=== PATIENT | female | born 1995 | race Caucasian/White ===

== ENCOUNTER 2020-04-03 08:00 | Outpatient (CLI) | payer MEDICAID ==
[2020-04-03 15:36] LABS: MUDS CUTOFF CONCENTRATIONS CUTOFF CONC BELOW:
[2020-04-03 15:53] LABS: AMPHETAMINE SCREEN,URINE NEGATIVE (NEGATIVE); BENZODIAZEPINES SCREEN, URINE NEGATIVE (NEGATIVE); COCAINE SCREEN URINE NEGATIVE (NEGATIVE); METHADONE SCREEN, URINE NEGATIVE (NEGATIVE); METHAMPHETAMINES SCREEN, URINE NEGATIVE (NEGATIVE); OPIATE SCREEN, URINE NEGATIVE (NEGATIVE); OXYCODONE SCREEN, URINE NEGATIVE (NEGATIVE); PROPOXYPHENE SCREEN, URINE NEGATIVE (NEGATIVE); TRICYCLIC ANTIDEPRESSANT,URINE NEGATIVE (NEGATIVE)
== END 2020-04-03 23:59 | disposition home or self-care (01) ==
LOC: LAB.R 08:00
PROVIDERS: ATTEND Advanced Practice Midwife
DX: Z32.01 Encounter for pregnancy test, result positive (principal)
CPT/HCPCS: 80306

== ENCOUNTER 2020-04-17 11:39 | Outpatient (CLI) | payer MEDICAID ==
--- NOTE | 2020-04-18 10:19 | Ultrasound Report ---
PROCEDURE: OB First Trimester INDICATIONS: POSITIVE TEST OUTSIDE/PRIOR DATING DATA: Last menstrual period (LMP): 02/07/2020. LMP-based estimated date of delivery (JERRI): 11/13/2020. First dating scan (date and location): 04/17/2020. Estimated date of delivery (JERRI) from first dating scan: 11/10/2020. TECHNIQUE: Real-time scanning was performed of the fetus and maternal pelvic organs, with image documentation. COMPARISON: None. FINDINGS: Embryo: A gestational sac is seen in the uterus with an embryo with crown-rump length compatible wit h a gestational age of 10 weeks 3 days. heart rate is 169 BPM. Measurement variability in dating: +/- 4 weeks by LMP, +/- 7 days by mean sac diameter (use before 6 weeks gestation if crown-rump length not able to be measured), +/- 5 days by crown-rump length (6-12 weeks gestation). Maternal organs: Ovaries are within normal limits. A right corpus luteum cyst is seen. The cervix is closed. Limited images through the kidneys demonstrate no hydronephrosis. IMPRESSION: Single live intrauterine with a heart rate of 169 bpm. Gowrie-rump length is compatibl e with a 10 week 3 day gestation, giving an ultrasound JERRI of 11/10/2020. Reviewed by: Vasiliy Corrales MD on 04/18/2020 10:18 AM PDT Approved by: Vasiliy Corrales MD on 04/18/2020 10:18 AM PDT Station ID: [id number]
== END 2020-04-17 11:40 | disposition home or self-care (01) ==
LOC: DI 11:39
PROVIDERS: ATTEND Advanced Practice Midwife
DX: Z32.01 Encounter for pregnancy test, result positive (principal)
CPT/HCPCS: 76801

== ENCOUNTER 2020-04-21 07:00 | Outpatient (CLI) | payer MEDICAID ==
[2020-04-21 16:25] LABS: BILIRUBIN,URINE NEGATIVE (NEGATIVE); GLUCOSE, URINE (UA) NEGATIVE (NEGATIVE); KETONES,URINE (UA) NEGATIVE (NEGATIVE); LEUKOCYTE ESTERASE, URINE NEGATIVE (NEGATIVE); NITRITE,URINE NEGATIVE (NEGATIVE); OCCULT BLOOD,URINE NEGATIVE (NEGATIVE); PROTEIN,URINE NEGATIVE (NEGATIVE); UROBILINOGEN,URINE 0.2 (NORMAL) E.U./dL (NORMAL)
[2020-04-21 16:49] LABS: AMORPHOUS SEDIMENT,UR Marked /LPF; BACTERIA,URINE None Seen /HPF (None Seen); CLARITY,URINE CLEAR (CLEAR); RBC,URINE None Seen /HPF (0-5); SQUAMOUS EPITHELIAL CELL,UR NONE SEEN (<= Few)
[2020-04-21 20:52] LABS: TRICHOMONAS VAGINALIS DNA NEGATIVE (NEGATIVE)
== END 2020-04-21 23:59 | disposition home or self-care (01) ==
LOC: LAB.R 07:00
PROVIDERS: ATTEND Nurse Practitioner Obstetrics & Gynecology
DX: Z34.90 Encounter for supervision of normal pregnancy, unspecified, unspecified trimester (principal); Z11.3 Encounter for screening for infections with a predominantly sexual mode of transmission
CPT/HCPCS: 81001; 87086; 87491; 87591; 87661

== ENCOUNTER 2020-04-21 12:00 | Outpatient (CLI) | payer MEDICAID ==
[2020-04-21 12:16] LABS: BASOPHILS % (AUTO) 0.3 %; EOSINOPHILS # (AUTO) 0.1 10^3/uL (0.0-0.7); EOSINOPHILS % (AUTO) 0.7 %; HGB - HEMOGLOBIN 13.2 g/dL (12.0-16.0); LYMPHOCYTES # (AUTO) 1.3 10^3/uL (1.5-3.5); LYMPHOCYTES % (AUTO) 17.8 %; MEAN CORPUSCULAR HEMOGLOBIN 29.8 pg (27.0-31.0); MEAN CORPUSCULAR HGB CONC 34.1 g/dL (32.0-36.0); MEAN CORPUSCULAR VOLUME 87.4 fL (81.0-99.0); MONOCYTES # (AUTO) 0.5 10^3/uL (0.0-1.0); MONOCYTES % (AUTO) 6.1 %; NEUTROPHILS # (AUTO) 5.6 10^3/uL (1.5-6.6); NEUTROPHILS % (AUTO) 74.7 %; PLT - PLATELET COUNT 203 10^3/uL (130-450); RED BLOOD COUNT 4.43 10^6/uL (4.20-5.40); RED CELL DISTRIBUTION WIDTH 12.6 % (12.0-15.0); WHITE BLOOD COUNT 7.5 x10^3/uL (4.8-10.8)
[2020-04-21 12:18] LABS: BILIRUBIN,URINE NEGATIVE (NEGATIVE); GLUCOSE, URINE (UA) NEGATIVE (NEGATIVE); KETONES,URINE (UA) TRACE mg/dL (NEGATIVE); LEUKOCYTE ESTERASE, URINE NEGATIVE (NEGATIVE); NITRITE,URINE NEGATIVE (NEGATIVE); OCCULT BLOOD,URINE NEGATIVE (NEGATIVE); PROTEIN,URINE NEGATIVE (NEGATIVE); UROBILINOGEN,URINE 0.2 (NORMAL) E.U./dL (NORMAL)
[2020-04-21 12:28] LABS: CLARITY,URINE HAZY (CLEAR)
[2020-04-21 12:34] LABS: BACTERIA,URINE Few /HPF (None Seen); RBC,URINE 0-5 /HPF (0-5); SQUAMOUS EPITHELIAL CELL,UR MANY Squamous (<= Few)
[2020-04-22 07:47] LABS: HIV AG/AB 4TH GEN NON-REACTIVE (NON-REACTIVE)
[2020-04-22 14:37] LABS: HEPATITIS B SURFACE ANTIGEN NON-REACTIVE (NON-REACTIVE)
[2020-04-22 14:38] LABS: HEPATITIS C ANTIBODY NON-REACTIVE (NON-REACTIVE)
== END 2020-04-21 12:01 | disposition home or self-care (01) ==
LOC: LAB 12:00
PROVIDERS: ATTEND Nurse Practitioner Obstetrics & Gynecology
DX: Z34.90 Encounter for supervision of normal pregnancy, unspecified, unspecified trimester (principal)
CPT/HCPCS: 36415; 81001; 81599; 85025; 86592; 86762; 86787; 86803; 86850; 86900; 86901; 87086; 87340; 87389; 87491; 87591; 87661

== ENCOUNTER 2020-06-28 12:11 | Outpatient (CLI) | payer BC, MEDICAID ==
--- NOTE | 2020-06-28 15:58 | Ultrasound Report ---
PROCEDURE: OB Detailed Eval INDICATIONS: SUPERVISION OF NORMAL OUTSIDE/PRIOR DATING DATA: Last menstrual period (LMP): 02/07/2020. LMP-based estimated date of delivery (JERRI): 11/13/2020. First dating scan (date and location): 04/07/2020. Estimated date of delivery (JERRI) from first dating scan: Reported 11/13/2020 according to the provider , based on LMP. Measurement variability is +/- 30 days. From the OB ultrasound performed 04/17/2020 t he estimated date of delivery is 11/10/2020, +/- 5 days, and is considered the accurate projected date of delivery to be utilized. TECHNIQUE: Real-time scanning was performed of the fetus, with image documentation and biometric measurements. Endovaginal scanning: Not needed COMPARISON: Prior OB ultrasound 04/17/2020 FINDINGS: General: A single living intrauterine gestation is present. Presentation: Vertex Placenta: Placental position is anterior, without previa. Amniotic fluid index: 15.3 cm, 60th percentile for gestational age. heart rate: 143 beats per minute. Maternal cervical canal: 3.7 cm long; normal length is 2.5 cm or more. biometrics: Biparietal diameter: 4.9 cm, 21 weeks 0 days Head circumference: 18.7 cm, 21 weeks 0 days Abdominal circumference: 16.0 cm, 21 weeks 1 day Femur length: 3.3 cm, 20 weeks 3 days Estimated gestational age from initial scan: 20 weeks 2 days. Composite gestational age from present scan: 20 weeks 6 days Estimated weight and percentile: 383 g, 77th percentile Measurement variability in biometric dating: +/- 10 days from 12-20 weeks gestation, +/- 2 weeks from 20-30 weeks gestation, +/- 3 weeks at 30 weeks gestation or later. Anatomic survey: Neuro: Ventricles are normal at less than 10 mm. Cisterna magna is normal at 3-11 mm. Cerebellum i s normal in size and morphology. Nuchal skin fold: Normal at less than 6 mm between 14 and 20 weeks gestational age. Face: Nose and lips, facial profile are normal. Spine: No evidence for spina bifida. Heart: 4-chambered heart is present, with normal ventricular outflow tracts. Diaphragm: Diaphragm is intact. Stomach: Left-sided stomach is present. Kidneys: No hydronephrosis. Normal is less than 5 mm in 2nd trimester, less than 7 mm in 3rd trimester. Cord: 3 vessel cord has orthotopic insertion. A nuchal cord was noted over the course of the examin ation, persisting. Bladder: Normal in size. Extremities: All 4 extremities are visualized. IMPRESSION: Appropriate interval growth, no anomaly seen. Amniotic fluid volume is normal. Survey of anatomy is normal except for presence of a nuchal cord considered persisting over the course of the e xamination. Single wrap. Reviewed by: Kulwinder Cintron MD on 06/28/2020 3:57 PM PST Approved by: Kulwinder Cintron MD on 06/28/2020 3:57 PM PST Station ID: [id number]
== END 2020-06-28 12:12 | disposition home or self-care (01) ==
LOC: DI 12:11
PROVIDERS: ATTEND Advanced Practice Midwife
DX: Z34.90 Encounter for supervision of normal pregnancy, unspecified, unspecified trimester (principal); Z36.89 Encounter for other specified antenatal screening

== ENCOUNTER 2020-08-07 17:01 | Outpatient (CLI) | payer BC, MEDICAID ==
--- NOTE | 2020-08-08 12:47 | Ultrasound Report ---
PROCEDURE: OB F/U or Repeat INDICATIONS: UTERINE SIZE/DATE DISCREPANCY OUTSIDE/PRIOR DATING DATA: Last menstrual period (LMP): 02/07/2020. LMP-based estimated date of delivery (JERRI): 11/13/2020. First dating scan (date and location): 04/17/2020. Estimated date of delivery (JERRI) from first dating scan: 11/10/2020. TECHNIQUE: Real-time scanning was performed of the fetus, with image documentation and biometric measurements. Endovaginal scanning: Not needed COMPARISON: 04/17/2020, 06/28/2021 FINDINGS: General: A single living intrauterine gestation is present. Presentation: Transverse head to the maternal left Placenta: Placental position is anterior, without previa. Amniotic fluid index: 16.0 cm, normal for gestational age. heart rate: 158 beats per minute. Maternal cervical canal: 4.0 cm long; normal length is 2.5 cm or more. biometrics: Biparietal diameter: 6.8 cm, 27 weeks 3 days Head circumference: 25.4 cm, 27 weeks 4 days Abdominal circumference: 23.6 cm, 27 weeks 6 days Femur length: 4.8 cm, 26 weeks 1 day Estimated gestational age from initial scan: 26 weeks 0 days. Composite gestational age from present scan: 27 weeks 2 days Estimated weight and percentile: 1044 g, 87th percentile Measurement variability in biometric dating: +/- 10 days from 12-20 weeks gestation, +/- 2 weeks from 20-30 weeks gestation, +/- 3 weeks at 30 weeks gestation or more. Other: Nuchal cord seen on prior ultrasound now not visualized.. IMPRESSION: Resolution of nuchal cord, appropriate interval growth. No anomaly seen. Normal fe lewis weight, normal amniotic fluid index. Reviewed by: Kulwinder Cintron MD on 08/08/2020 12:45 PM PST Approved by: Kulwinder Cintron MD on 08/08/2020 12:45 PM PST Station ID: [id number]
== END 2020-08-07 17:02 | disposition home or self-care (01) ==
LOC: DI 17:01
PROVIDERS: ATTEND Advanced Practice Midwife
DX: O26.849 Uterine size-date discrepancy, unspecified trimester (principal)

== ENCOUNTER 2020-08-11 08:00 | Outpatient (CLI) | payer BC, MEDICAID ==
[2020-08-11 14:02] LABS: HGB - HEMOGLOBIN 11.1 g/dL (12.0-16.0); MEAN CORPUSCULAR HEMOGLOBIN 29.4 pg (27.0-31.0); MEAN CORPUSCULAR HGB CONC 33.3 g/dL (32.0-36.0); MEAN CORPUSCULAR VOLUME 88.3 fL (81.0-99.0); MEAN PLATELET VOLUME 8.9 fL (7.9-10.8); RED BLOOD COUNT 3.77 10^6/uL (4.20-5.40); RED CELL DISTRIBUTION WIDTH 13.2 % (12.0-15.0); WHITE BLOOD COUNT 11.5 x10^3/uL (4.8-10.8)
== END 2020-08-11 23:59 | disposition home or self-care (01) ==
LOC: LAB 08:00
PROVIDERS: ATTEND Advanced Practice Midwife
DX: Z34.90 Encounter for supervision of normal pregnancy, unspecified, unspecified trimester (principal); Z36.89 Encounter for other specified antenatal screening
CPT/HCPCS: 36415; 82950; 85027

== ENCOUNTER 2020-10-04 15:10 | Outpatient (CLI) | payer BC, MEDICAID ==
--- NOTE | 2020-10-04 16:44 | Ultrasound Report ---
PROCEDURE: OB F/U or Repeat INDICATIONS: UTERINE SIZE, DATE DESCREPANCY ANTEPARTUM OUTSIDE/PRIOR DATING DATA: Last menstrual period (LMP): 03/05/2020. LMP-based estimated date of delivery (JERRI): 11/13/2020. First dating scan (date and location): 04/17/2020. Estimated date of delivery (JERRI) from first dating scan: 11/20/2020. JERRI given as provider is stated as 11/13/2020 and is the basis for the information below. TECHNIQUE: Real-time scanning was performed of the fetus, with image documentation and biometric measurements. COMPARISON: OB ultrasound 08/07/2020, 06/28/2020 FINDINGS: General: A single living intrauterine gestation is present. Presentation: Vertex Placenta: Placental position is anterior, without previa. Amniotic fluid index: 18.3 cm, 74% for gestational age. 7.1 cm heart rate: 127 beats per minute. Maternal cervical canal: 3.4 cm long; normal length is 2.5 cm or more. biometrics: Biparietal diameter: 8.8 cm 35 weeks 5 days Head circumference: 32.6 cm 37 weeks 0 days Abdominal circumference: 35.5 cm 39 weeks 3 days Femur length: 6.7 cm 34 weeks 4 days Estimated gestational age from initial scan: 34 weeks 2 days Composite gestational age from present scan: 36 weeks 5 days Estimated weight and percentile: Unable to be calculated secondary to out of range for scoo mobility software. Measurement variability in biometric dating: +/- 10 days from 12-20 weeks gestation, +/- 2 weeks from 20-30 weeks gestation, +/- 3 weeks at 30 weeks gestation or more. Other: Not applicable. IMPRESSION: 1. Single live intrauterine with gestational age of 36 weeks 5 days. 2. weight is unable to be calculated secondary to out of range for computational software. 3. It is noted a greater than 3 week discrepancy is present between femur length and abdominal circum ference. Asymmetric growth restriction cannot be excluded. Reviewed by: Kelli Crespo MD on 10/04/2020 4:43 PM PDT Approved by: Kelli Crespo MD on 10/04/2020 4:43 PM PDT Station ID: [id number]
== END 2020-10-04 15:11 | disposition home or self-care (01) ==
LOC: DI 15:10
PROVIDERS: ATTEND Advanced Practice Midwife
DX: O26.843 Uterine size-date discrepancy, third trimester (principal); Z3A.36 36 weeks gestation of pregnancy

== ENCOUNTER 2020-10-09 07:57 | Outpatient (CLI) | payer BC, MEDICAID ==
[2020-10-09 08:25] LABS: GTT GLUCOSE,FASTING 108 mg/dL (70-100)
== END 2020-10-09 07:58 | disposition home or self-care (01) ==
LOC: LAB 07:57
PROVIDERS: ATTEND Advanced Practice Midwife
DX: O36.60X0 Maternal care for excessive fetal growth, unspecified trimester, not applicable or unspecified (principal)
CPT/HCPCS: 36415; 82951; 82952

== ENCOUNTER 2020-10-13 13:47 | Outpatient (CLI) | payer BC, MEDICAID ==
[2020-10-13 14:00] VITALS: BP 116/71
--- NOTE | 2020-10-13 17:24 | PROCEDURE REPORT ---
- HPI Diagnosis/Indication for NST: Gestational Diabetes Current EDU 11/13/20 Gestation 35 Weeks and 4 Days 2 Para 1 Vital Signs Temperature 36.5 C 10/13/20 14:00 Heart Rate 74 10/13/20 14:00 Respiratory Rate 16 10/13/20 14:00 Blood Pressure 116/71 10/13/20 14:00 O2 Saturation 99 10/13/20 14:00 Temperature 36.5 C 10/13/20 14:00 Heart Rate 74 10/13/20 14:00 Respiratory Rate 16 10/13/20 14:00 Blood Pressure 116/71 10/13/20 14:00 O2 Saturation 99 10/13/20 14:00 - NST Procedure NST Procedure Start Date 10/13/20 Start Time 13:56 Stop Time 14:28 Vibroacoustic Stimulation Used No Patient States Movement Yes - Results and Plan Plan: Camelia presents today for scheduled NST r/t complicated by GDM She is a 24yo @ 35.4wks gestation NST perform date: 10/13/2020 NST read date: 10/13/2020 FHR 130 baseline, moderate variability, accels, no decels Interpretation: Reactive Plan: Continue with routine care Continue with scheduled NSTs and BPPs Final Diagnosis: complicated by GDM
== END 2020-10-13 14:40 | disposition home or self-care (01) ==
LOC: WFO 13:47 → FBP 13:49 → WFO 14:40
PROVIDERS: ATTEND Nurse Practitioner Obstetrics & Gynecology
DX: O24.419 Gestational diabetes mellitus in pregnancy, unspecified control (principal); Z3A.35 35 weeks gestation of pregnancy
CPT/HCPCS: 59025

== ENCOUNTER 2020-10-16 13:32 | Outpatient (CLI) | payer BC, MEDICAID ==
[2020-10-16 15:19] VITALS: BP 122/77
[2020-10-16 15:26] LABS: BILIRUBIN,URINE NEGATIVE (NEGATIVE); GLUCOSE, URINE (UA) NEGATIVE (NEGATIVE); KETONES,URINE (UA) 15 mg/dL (NEGATIVE); LEUKOCYTE ESTERASE, URINE SMALL (NEGATIVE); NITRITE,URINE NEGATIVE (NEGATIVE); OCCULT BLOOD,URINE SMALL (NEGATIVE); PH,URINE 6.5 PH (5.0-7.5); PROTEIN,URINE NEGATIVE (NEGATIVE); UROBILINOGEN,URINE 0.2 (NORMAL) E.U./dL (NORMAL)
[2020-10-16 15:35] LABS: BACTERIA,URINE Rare /HPF (None Seen); CLARITY,URINE CLEAR (CLEAR); MUCUS,URINE Few Strands; SQUAMOUS EPITHELIAL CELL,UR FEW Squamous (<= Few); WBC,URINE 0-3 /HPF (0-5)
--- NOTE | 2020-10-16 15:49 | PROVIDER PROGRESS NOTE ---
- HPI Chief Complaint: Pain, non-labor Current : Current EDU 11/13/20 Gestation 36 Weeks and 0 Days 2 Para 1 Vital Signs Temperature 37 C 10/16/20 14:03 Heart Rate 91 10/16/20 14:03 Respiratory Rate 18 10/16/20 14:03 Blood Pressure 122/77 10/16/20 14:03 O2 Saturation 100 10/16/20 14:03 Temperature 37 C 10/16/20 14:03 Heart Rate 91 10/16/20 14:03 Respiratory Rate 18 10/16/20 14:03 Blood Pressure 122/77 10/16/20 14:03 O2 Saturation 100 10/16/20 14:03 - Procedures OB Procedure Performed: NST NST Procedure: NST Procedure Start Time 13:56 Stop Time 14:28 - Plan Plan: Camelia presents to triage with c/o lower abdominal cramping and back discomfort She is 36.0wks today, and is with a complicated by Gestational Diabetes. She reports feeling the baby has dropped into her pelvis and has discomfort when standing or walking around. Diffuse cramping like pressure. Sharp pain shoots up her back, and is positional. She has her blood sugar record from recent new diagnosis GDM O: Ctx q3-10mins- palpate mild, resting tone soft FHT 135 moderate variability, accels, do decels UA- pending GBS-pending GC/CT- pending Affirm- pending SVE 08/05/ballotable/posterior/moderate Blood sugar record: Fastin; 104; 87; 139; 122; 90 Post prandials- one out of range (150) A: 24yo at 36.0wks gestation Pelvic Pain- possibly related to SPD or round ligament pain Poorly controlled Gestational Diabetes (>30% AM sugars out of range) P: Await results of pending labs- will notify patient of abnormals Expectant management if increasing uterine activity- OK to discharge home with labor precautiions Start on Metformin 500mg PO daily, will evaluate blood sugar record at appointment next week, and increase to BID if indicated Growth and ALE with NST scheduled for tomorrow (Current recommendations are for growth between 36.0-39.0 wks) Continue with routine care and twice weekly NST with once weekly BPP Final Diagnosis: pelvic pain gestational diabetes This was a [id number] encounter for 27 minutes of patient care
[2020-10-16 22:05] LABS: CHLAMYDIA TRACHOMATIS DNA NEGATIVE (NEGATIVE); NEISSERIA GONORRHOEAE DNA NEGATIVE (NEGATIVE); TRICHOMONAS VAGINALIS DNA NEGATIVE (NEGATIVE)
[2020-10-16 22:57] LABS: BACTERIAL VAGINOSIS DNA NEGATIVE (NEGATIVE)
[2020-10-16 22:58] LABS: CANDIDA GLABRATA DNA NEGATIVE (NEGATIVE); CANDIDA GROUP DNA POSITIVE (NEGATIVE); CANDIDA KRUSEI DNA NEGATIVE (NEGATIVE); TRICHOMONAS VAGINALIS DNA NEGATIVE (NEGATIVE)
== END 2020-10-16 15:55 | disposition home or self-care (01) ==
LOC: WFO 13:32 → FBP 13:36 → WFO 15:55
PROVIDERS: ATTEND Advanced Practice Midwife
DX: O99.891 Other specified diseases and conditions complicating pregnancy (principal); R10.2 Pelvic and perineal pain; O24.415 Gestational diabetes mellitus in pregnancy, controlled by oral hypoglycemic drugs; Z3A.36 36 weeks gestation of pregnancy
CPT/HCPCS: 59025; 81001; 87086; 87491; 87591; 87661; 87797; 87801; 99214

== ENCOUNTER 2020-10-17 13:58 | Outpatient (CLI) | payer BC, MEDICAID ==
[2020-10-17 14:23] VITALS: BP 122/79
--- NOTE | 2020-10-17 16:56 | Ultrasound Report ---
PROCEDURE: OB F/U or Repeat INDICATIONS: GDM, LGA, JERRI 11/13/2020, LMP 02/07/2020 OUTSIDE/PRIOR DATING DATA: Last menstrual period (LMP): 02/07/2020. LMP-based estimated date of delivery (JERRI): 11/13/2020. First dating scan (date and location): 04/17/2020. Estimated date of delivery (JERRI) from first dating scan: 11/20/2020. TECHNIQUE: Real-time scanning was performed of the fetus, with image documentation and biometric measurements. COMPARISON: OB ultrasound 08/07/2019, 10/05/2019, 08/29/2019, 04/17/2020 FINDINGS: General: A single living intrauterine gestation is present. Presentation: Vertex Placenta: Placental position is anterior, without previa. Amniotic fluid index: 17.3 cm, 70th percentile for gestational age. Largest pocket 7.4 cm heart rate: 133 beats per minute. Maternal cervical canal: 4.7 cm long; normal length is 2.5 cm or more. biometrics: Biparietal diameter: 9.1 cm 36 weeks 6 days Head circumference: 33.1 cm 37 weeks 5 days Abdominal circumference: 37.0 cm 40 weeks 6 days Femur length: 6.9 cm 35 weeks 2 days Estimated gestational age from initial scan: 36 weeks 1 day Composite gestational age from present scan: 37 weeks 5 days Estimated weight and percentile: 3625 g, 99th percentile Measurement variability in biometric dating: +/- 10 days from 12-20 weeks gestation, +/- 2 weeks from 20-30 weeks gestation, +/- 3 weeks at 30 weeks gestation or more. Other: Not applicable. IMPRESSION: 1. Single live intrauterine . 2. Estimated weight 3625 g, 99th percentile. 3. There is a persistent greater than 3 week discrepancy of the femur length, which has been present on multiple prior exams. As previously noted, while this could be secondary to ultrasound measurement s and gestational age, asymmetric growth restriction cannot be excluded. Reviewed by: Kelli Crespo MD on 10/17/2020 4:55 PM PDT Approved by: Kelli Crespo MD on 10/17/2020 4:55 PM PDT Station ID: [id number]
--- NOTE | 2020-10-17 16:58 | Ultrasound Report ---
PROCEDURE: OB Biophysical Profile INDICATIONS: GDM, LGA, JERRI 11/13/2020, LMP 02/07/2020 OUTSIDE/PRIOR DATING DATA: Last menstrual period (LMP): 02/07/2020. LMP-based estimated date of delivery (JERRI): 11/13/2020. First dating scan (date and location): 04/17/2020. Estimated date of delivery (JERRI) from first dating scan: 11/20/2020. TECHNIQUE: Real-time scanning was performed of the fetus, with image documentation and biometric measurements. COMPARISON: OB ultrasound 08/07/2019, 10/05/2019, 08/29/2019, 04/17/2020 FINDINGS: General: A single living intrauterine gestation is present. Presentation: Vertex Placenta: Placental position is anterior, without previa. Amniotic fluid index: 17.3 cm, 70th percentile for gestational age. Largest pocket 7.4 cm heart rate: 133 beats per minute. Maternal cervical canal: 4.7 cm long; normal length is 2.5 cm or more. Biophysical profile: Tone: 2 points. Movement: 2 points. Respiration: 2 points. Largest pocket of fluid: 2 points. IMPRESSION: 1. Single live intrauterine . 2. BPP 8 out of 8. Reviewed by: Kelli Crespo MD on 10/17/2020 4:57 PM PDT Approved by: Kelli Crespo MD on 10/17/2020 4:57 PM PDT Station ID: [id number]
--- NOTE | 2020-10-17 19:18 | PROCEDURE REPORT ---
- HPI Diagnosis/Indication for NST: Gestational Diabetes Current EDU 11/13/20 Gestation 36 Weeks and 1 Days 2 Para 1 Vital Signs Temperature 36.5 C 10/17/20 14:09 Heart Rate 98 10/17/20 14:09 Respiratory Rate 16 10/17/20 14:09 Blood Pressure 122/79 10/17/20 14:09 O2 Saturation 100 10/17/20 14:09 Temperature 36.5 C 10/17/20 14:09 Heart Rate 98 10/17/20 14:09 Respiratory Rate 16 10/17/20 14:09 Blood Pressure 122/79 10/17/20 14:09 O2 Saturation 100 10/17/20 14:09 - NST Procedure NST Procedure Start Date 10/17/20 Start Time 14:05 Stop Time 15:01 Vibroacoustic Stimulation Used Yes Patient States Movement Yes - Results and Plan Findings/Impression: Camelia is a 24yo at 36.1wks gestation who presents for NST w/BPP and a Growth US secondary to GDM NST perform Date: 10/17/2020 NST read Date: 10/17/2020 Interpretation: Reassuring BPP 02/11 Growth US: ALE 17.3, largest pocket 7.4 EFW 3625g, 99% Femur length 35.2wks with composite gestational age 37.2wks, and AC 40.6wks (consistent with poorly controlled GDM) Final Diagnosis: Gestational Diabetes Suspected Macrosomia Plan: Continue with routine care NST twice weekly, with once weekly BPP
== END 2020-10-17 16:10 | disposition home or self-care (01) ==
LOC: WFO 13:58 → FBP 14:00 → WFO 16:10
PROVIDERS: ATTEND Advanced Practice Midwife
DX: O24.419 Gestational diabetes mellitus in pregnancy, unspecified control (principal); Z3A.36 36 weeks gestation of pregnancy
CPT/HCPCS: 59025

== ENCOUNTER 2020-10-18 12:48 | Outpatient (CLI) | payer BC, MEDICAID ==
[2020-10-18 13:01] VITALS: BP 134/73
--- NOTE | 2020-10-18 15:35 | PROVIDER PROGRESS NOTE ---
- HPI Chief Complaint: Labor Check Current : Current EDU 11/13/20 Gestation 36 Weeks and 2 Days 2 Para 1 Vital Signs Temperature 36.5 C 10/18/20 12:59 Heart Rate 97 10/18/20 12:59 Respiratory Rate 16 10/18/20 12:59 Blood Pressure 134/73 H 10/18/20 12:59 O2 Saturation 100 10/18/20 12:59 Temperature 36.5 C 10/18/20 12:59 Heart Rate 97 10/18/20 12:59 Respiratory Rate 16 10/18/20 12:59 Blood Pressure 134/73 H 10/18/20 12:59 O2 Saturation 100 10/18/20 12:59 - Procedures OB Procedure Performed: NST NST Procedure: NST Procedure Start Date 10/18/20 Start Time 12:52 Stop Time 14:00 Vibroacoustic Stimulation Used Yes Patient States Movement Yes - Plan Plan: S: Camelia presents to triage today for some ongoing mild cramping and back discomfort accompanied with loose stools. She reports she started her metformin yesterday and all her blood sugars are wnl today O: NST perform date: 10/18/2020 NST read date: 10/18/2020 Interpretation: 135 baseline, moderate variability, accels 15x15, no decels Uterine activity on monitor- irregular A: 24yo at 36.2wks gestation New onset uterine irritability and bowel upset possibly due to new Rx metformin- common side effect. Reinforced teaching. GDM NST: reassuring P: Continue with routine care Continue with twice weekly NST and once weekly BPP Final diagnosis: false labor
== END 2020-10-18 14:10 | disposition home or self-care (01) ==
LOC: WFO 12:48 → FBP 12:52 → WFO 14:10
PROVIDERS: ATTEND Advanced Practice Midwife
DX: O99.891 Other specified diseases and conditions complicating pregnancy (principal); R10.2 Pelvic and perineal pain; M54.9 Dorsalgia, unspecified; R19.4 Change in bowel habit; O24.415 Gestational diabetes mellitus in pregnancy, controlled by oral hypoglycemic drugs; Z3A.36 36 weeks gestation of pregnancy
CPT/HCPCS: 59025; 99213

== ENCOUNTER 2020-10-20 13:00 | Outpatient (CLI) | payer BC, MEDICAID ==
--- NOTE | 2020-10-20 16:39 | Ultrasound Report ---
PROCEDURE: OB Biophysical Profile INDICATIONS: GESTATTIONAL DIABETES MELLITUUS OUTSIDE/PRIOR DATING DATA: Last menstrual period (LMP): 02/07/2020. LMP-based estimated date of delivery (JERRI): 11/13/2020. First dating scan (date and location): 04/17/2020. Estimated date of delivery (JERRI) from first dating scan: 11/20/2020. TECHNIQUE: Real-time scanning was performed of the fetus, with image documentation and biometric tony surements. Biophysical profile was also obtained. Endovaginal scanning: Not needed COMPARISON: All available prior OB ultrasound studies for this . FINDINGS: General: A single living intrauterine gestation is present. Presentation: Vertex Placenta: Placental position is anterior, without previa. Amniotic fluid index: 20.9 cm, 85th percentile for gestational age. heart rate: 141 beats per minute. Maternal cervical canal: 3.1 cm long; normal length is 2.5 cm or more. Biophysical profile: Tone: 2 points. Movement: 2 points. Respiration: 2 points. Largest pocket of fluid: 2 points. IMPRESSION: Relatively large amniotic fluid volume at the upper 85th percentile. Biophysical profile yields 8 of 8 possible points. Reviewed by: Kulwinder Cintron MD on 10/20/2020 4:37 PM PDT Approved by: Kulwinder Cintron MD on 10/20/2020 4:37 PM PDT Station ID: [id number]
== END 2020-10-20 13:01 | disposition home or self-care (01) ==
LOC: DI 13:00
PROVIDERS: ATTEND Nurse Practitioner Obstetrics & Gynecology
DX: O24.419 Gestational diabetes mellitus in pregnancy, unspecified control (principal)

== ENCOUNTER 2020-10-20 13:55 | Outpatient (CLI) | payer BC, MEDICAID ==
[2020-10-20 14:14] VITALS: BP 124/84
--- NOTE | 2020-10-20 17:49 | PROCEDURE REPORT ---
- HPI Diagnosis/Indication for NST: Gestational Diabetes Current EDU 11/13/20 Gestation 36 Weeks and 4 Days 2 Para 1 Vital Signs Temperature 97.7 F 10/20/20 14:10 Heart Rate 103 H 10/20/20 14:10 Blood Pressure 124/84 H 10/20/20 14:10 Temperature 97.7 F 10/20/20 14:10 Heart Rate 103 H 10/20/20 14:10 Respiratory Rate Blood Pressure 124/84 H 10/20/20 14:10 O2 Saturation - NST Procedure NST Procedure Start Date 10/20/20 Start Time 13:55 Stop Time 14:19 Vibroacoustic Stimulation Used No Patient States Movement Yes EFM 145 mild dot 15x15 accelx1, 10x10 accels no decels TOCO: quiet BPP 02/11 - Results and Plan Findings/Impression: Patient is a 24 yo at 36+4 wga with affected by GHTN NST does not meet reactive criteria as does not have 15x15 accels x2 Does have multiple 10x10 accels BPP was performed and was 02/11 Will cont with twice weekly NST and weekly ALE DX: IUP at 36+4 Gestational diabetes
== END 2020-10-20 14:24 | disposition home or self-care (01) ==
LOC: WFO 13:55 → FBP 13:56 → WFO 14:24
PROVIDERS: ATTEND Obstetrics & Gynecology
DX: O24.419 Gestational diabetes mellitus in pregnancy, unspecified control (principal); Z3A.36 36 weeks gestation of pregnancy
CPT/HCPCS: 59025

== ENCOUNTER 2020-10-22 21:41 | Outpatient (CLI) | payer BC, MEDICAID ==
[2020-10-22 22:25] VITALS: BP 118/70
--- NOTE | 2020-10-26 12:42 | PROVIDER PROGRESS NOTE ---
- HPI Chief Complaint: Labor Current : Current EDU 11/13/20 Gestation 36 Weeks and 6 Days 2 Para 1 Vital Signs Temperature 98.1 F 10/22/20 21:57 Heart Rate 97 10/22/20 21:57 Respiratory Rate 18 10/22/20 21:57 Blood Pressure 118/70 10/22/20 21:57 O2 Saturation 99 10/22/20 21:57 Temperature 98.1 F 10/22/20 22:27 Heart Rate 97 10/22/20 22:27 Respiratory Rate 18 10/22/20 22:27 Blood Pressure 118/70 10/22/20 22:27 O2 Saturation 99 10/22/20 22:27 - Exam Not examined by MD SVE FT/long/high per RN exam Stable over serial exams - Procedures OB Procedure Performed: NST Diagnosis/Indication for NST: Gestational Diabetes NST Procedure: NST Procedure Start Date 10/22/20 Start Time 22:00 Stop Time 22:30 Vibroacoustic Stimulation Used No Patient States Movement Yes EFM 125 mod dot 15x15 accels no decels TOCO: irritable Service Date of procedure: 10/23/20 Procedure Details: Patient is a 24 yo at 37 wga with a complocated by GDM who presented for labor check. had been having painful contractions. Per RN hx: Pt reports UCs with abdominal pain and back pain 5/10. Contractions per pt started to be Q 1-2 minutes at 1900 lasting 30-40 seconds. Reports vaginal batsheva oting pains intermittantly. She is on day 5 of treatment of vaginal yeast infection. Using clotrimazole.Per EFM UCs q 3-9 minutes,30-70 seconds. FHR 120,moderate variability,+ accelerations. No decelerations. Catagory 1 tracing. Reactive NST. Per pt last exam 1 cm,30% effaced Patient was obsreved on monitor and showed uterine irritability Serial SVE performed, no change in SVE Cat I tracing Cont with twice weekly NST and weekly ALE Warning signs reviewed Discharged to home DOS: Presented on 10/22/20 pm, discharged 10/23/20 DX: IUP at 37+0 GDM Fasle labor
== END 2020-10-23 00:04 | disposition home or self-care (01) ==
LOC: WFO 21:41 → FBP 21:43 → WFO 10-23 00:04
PROVIDERS: ATTEND Obstetrics & Gynecology
DX: O47.1 False labor at or after 37 completed weeks of gestation (principal); O24.419 Gestational diabetes mellitus in pregnancy, unspecified control; Z3A.37 37 weeks gestation of pregnancy
CPT/HCPCS: 59025; 99212; 99213

== ENCOUNTER 2020-10-24 11:09 | Outpatient (CLI) | payer BC, MEDICAID ==
[2020-10-24] MEDS ORDERED: ACETAMINOPHEN 500 MG TABLET PO ONE (12:00)
[2020-10-24 12:28] LABS: BILIRUBIN,URINE NEGATIVE (NEGATIVE); CLARITY,URINE CLEAR (CLEAR); GLUCOSE, URINE (UA) NEGATIVE (NEGATIVE); KETONES,URINE (UA) 15 mg/dL (NEGATIVE); LEUKOCYTE ESTERASE, URINE SMALL (NEGATIVE); NITRITE,URINE NEGATIVE (NEGATIVE); OCCULT BLOOD,URINE MODERATE (NEGATIVE); PROTEIN,URINE NEGATIVE (NEGATIVE); UROBILINOGEN,URINE 0.2 (NORMAL) E.U./dL (NORMAL)
[2020-10-24 12:35] LABS: BACTERIA,URINE Rare /HPF (None Seen); MUCUS,URINE Few Strands; SQUAMOUS EPITHELIAL CELL,UR MOD Squamous (<= Few)
--- NOTE | 2020-10-24 12:53 | PROVIDER PROGRESS NOTE ---
- HPI Chief Complaint: Decreased movement Current : Current EDU 11/13/20 Gestation 37 Weeks and 1 Days 2 Para 1 Vital Signs Temperature 36.8 C 10/24/20 11:22 Heart Rate 85 10/24/20 11:22 Respiratory Rate 22 10/24/20 11:22 Blood Pressure 119/73 10/24/20 11:22 O2 Saturation 100 10/24/20 11:22 Temperature 36.8 C 10/24/20 11:31 Heart Rate 85 10/24/20 11:31 Respiratory Rate 22 10/24/20 11:31 Blood Pressure 119/73 10/24/20 11:31 O2 Saturation 100 10/24/20 11:31 - Procedures OB Procedure Performed: NST Diagnosis/Indication for NST: Decreased movement NST Procedure: NST Procedure Start Date 10/24/20 Start Time 11:20 Stop Time 12:20 Vibroacoustic Stimulation Used Yes Patient States Movement Yes: Decreased from normal - Plan Plan: Camelia is a 24yo @ 37.1wks gestation who presents today to [facility] with c/o contractions and decreased movement. She is scheduled for NST secondary to GDM later today but decided to come in early secondary to feeling like she may be in labor and feeling her baby move less at this time. She denies vaginal bleeding or leakage of fluid. She is also experiencing significant sciatic nerve pain down her right leg and states it has made it very difficult for her to walk most days. She has seen chiropractors in the past which has helped but she has not seen one during this . NST performed 10/24/2020 NST read 10/24/2020 NST non-reactive after 40 minutes and vibroacoustic stimulation. FHR baseline 135, minimal variability, no accels, no decels. Secondarily a BPP was ordered. BPP 8/8. ALE WNL SVE closed/thick/high vital signs WNL Following her ultrasound the NST was resumed and reactive with FHR baseline 135, moderate variability, + accels and no decels. Assessment: 24yo @ 37.1wks gestation A1 GDM Sciatic nerve pain Decreased movement Plan: Reviewed relief measures for sciatic nerve pain and encouraged health care facility administrator. Keep schedule visit in the clinic tomorrow. Continue twice weekly NSTs with once weekly BPPs/AFIs and plan IOL at 39wks gestation. Pt verbalized understanding and agrees to above plan. She denies further questions or concerns at this time. FINAL DIAGNOSIS: Sciatic nerve pain decreased movement
[2020-10-24 14:48] VITALS: BP 126/76
--- NOTE | 2020-10-24 14:50 | Ultrasound Report ---
PROCEDURE: OB Biophysical Profile INDICATIONS: Decreased movement, non-reactive NST OUTSIDE/PRIOR DATING DATA: Last menstrual period (LMP): 02/07/2020. LMP-based estimated date of delivery (JERRI): 11/13/2020. First dating scan (date and location): 04/17/2020. Estimated date of delivery (JERRI) from first dating scan: 11/13/2020 reported by the provider. TECHNIQUE: Real-time scanning was performed of the fetus, with image documentation and biometric tony surements. Biophysical profile was also obtained. Endovaginal scanning: Not indicated COMPARISON: 10/20/2020, 10/17/2020 10/04/2020, 08/07/2020. FINDINGS: General: A single living intrauterine gestation is present. Presentation: Vertex Placenta: Placental position is anterior, without previa. Amniotic fluid index: 18.4 cm, 77.3% and is normal for gestational age. heart rate: 131 beats per minute. Maternal cervical canal: 3.4 cm long and is closed; normal length is 2.5 cm or more. Estimated gestational age from initial scan: 37 weeks, 1 day Biophysical profile: Tone: 2 points. Movement: 2 points. Respiration: 2 points. Largest pocket of fluid: 2 points. 8.26 cm Umbilical artery Doppler: 1.77 at placenta, 1.98@mid cord level, 2.2 at abdomen IMPRESSION: 1. Single live intrauterine with fetus in vertex presentation. heart rate is 131 bpm. 2. ALE equals 18.4 cm and is at 77.3 percentile. Largest pocket measures 8.26 cm. 3. biophysical profile score is 8 out of 8. 4. Normal umbilical artery S/D ratio. Reviewed by: Jaime Braun MD on 10/24/2020 2:49 PM PDT Approved by: Jaime Braun MD on 10/24/2020 2:49 PM PDT Station ID: [id number]
== END 2020-10-24 14:35 | disposition home or self-care (01) ==
LOC: WFO 11:09 → FBP 11:13 → WFO 14:35
PROVIDERS: ATTEND Nurse Practitioner Obstetrics & Gynecology
DX: O36.8130 Decreased fetal movements, third trimester, not applicable or unspecified (principal); O99.891 Other specified diseases and conditions complicating pregnancy; M54.31 Sciatica, right side; O24.419 Gestational diabetes mellitus in pregnancy, unspecified control; Z3A.37 37 weeks gestation of pregnancy
CPT/HCPCS: 59025; 76819; 81001; 99213; A9270; 87086

== ENCOUNTER 2020-10-27 13:50 | Outpatient (CLI) | payer BC, MEDICAID ==
[2020-10-27 14:13] VITALS: BP 105/70
--- NOTE | 2020-10-28 10:14 | PROCEDURE REPORT ---
- HPI Diagnosis/Indication for NST: Gestational Diabetes Current EDU 11/13/20 Gestation 37 Weeks and 4 Days 2 Para 1 Vital Signs Temperature 37.0 C 10/27/20 14:08 Heart Rate 75 10/27/20 14:08 Respiratory Rate 16 10/27/20 14:08 Blood Pressure 105/70 10/27/20 14:08 O2 Saturation 98 10/27/20 14:08 Temperature 37.0 C 10/27/20 14:08 Heart Rate 75 10/27/20 14:08 Respiratory Rate 16 10/27/20 14:08 Blood Pressure 105/70 10/27/20 14:08 O2 Saturation 98 10/27/20 14:08 - NST Procedure NST Procedure Start Date 10/27/20 Start Time 14:06 Stop Time 14:36 Vibroacoustic Stimulation Used No Patient States Movement Yes - Results and Plan Plan: Camelia is a 24yo @ 37.5 wks gestation who presents today to [facility] for sc heduled NST secondary to gestational diabetes. NST performed 10/28/2020 NST read 10/28/2020 NST reactive. FHR baseline 135, minimal variability, no accels, no decels. BPP 8/8. Assessment: 24yo @ 37.5wks gestation A1 GDM Plan: Continue twice weekly NSTs with once weekly BPPs/AFIs and plan IOL at 39wks gestation. Pt verbalized understanding and agrees to above plan. She denies further questions or concerns at this time. FINAL DIAGNOSIS: A1 Gestational Diabetes
== END 2020-10-27 14:52 | disposition home or self-care (01) ==
LOC: WFO 13:50 → FBP 13:52 → WFO 14:52
PROVIDERS: ATTEND Nurse Practitioner Obstetrics & Gynecology
DX: O24.419 Gestational diabetes mellitus in pregnancy, unspecified control (principal); Z3A.37 37 weeks gestation of pregnancy
CPT/HCPCS: 59025

== ENCOUNTER 2020-10-27 14:55 | Outpatient (CLI) | payer BC, MEDICAID ==
--- NOTE | 2020-10-27 16:49 | Ultrasound Report ---
PROCEDURE: OB Biophysical Profile INDICATIONS: GESTATIONAL DIABETES MELLITUS OUTSIDE/PRIOR DATING DATA: Last menstrual period (LMP): 02/07/2020. LMP-based estimated date of delivery (JERRI): 11/13/2020. First dating scan (date and location): 04/17/2020. Estimated date of delivery (JERRI) from first dating scan: 11/20/2020. It is noted JERRI 5 provider is es tablished at 11/20/20 and flow data was derived from this date. TECHNIQUE: Real-time scanning was performed of the fetus, with image documentation and biometric tony surements. Biophysical profile was also obtained. COMPARISON: OB ultrasound October 24, 2020, October 20, 2020, October 17, 2020 FINDINGS: General: A single living intrauterine gestation is present. Presentation: Further Placenta: Placental position is anterior, without previa. Amniotic fluid index: 15.6 cm, 62nd percentile for gestational age. Largest pocket 5.1 cm heart rate: 136 beats per minute. Maternal cervical canal: 4.5 cm long; normal length is 2.5 cm or more. Biophysical profile: Tone: 2 points. Movement: 2 points. Respiration: 2 points. Largest pocket of fluid: 2 points. Umbilical artery Doppler: 1.9, 2.5, 2.4, reflecting proximal, mid and distal portions respectively, compared to 1.8, 2.0, 2.2 on prior exam. IMPRESSION: 1. Single live intrauterine . 2. BPP 8 out of 8 3. Umbilical artery S/D is within normal limits. Reviewed by: Kelli Crespo MD on 10/27/2020 4:48 PM PDT Approved by: Kelli Crespo MD on 10/27/2020 4:48 PM PDT Station ID: [id number]
== END 2020-10-27 14:56 | disposition home or self-care (01) ==
LOC: DI 14:55
PROVIDERS: ATTEND Nurse Practitioner Obstetrics & Gynecology
DX: O24.419 Gestational diabetes mellitus in pregnancy, unspecified control (principal)

== ENCOUNTER 2020-10-31 13:42 | Outpatient (CLI) | payer BC, MEDICAID ==
[2020-10-31 14:00] VITALS: BP 131/79
--- NOTE | 2020-10-31 17:49 | PROCEDURE REPORT ---
- HPI Current [facility] 11/13/20 Gestation 38 Weeks and 1 Days 2 Para 1 Vital Signs Temperature 37.6 C 10/31/20 13:59 Heart Rate 83 10/31/20 13:59 Respiratory Rate 18 10/31/20 13:59 Blood Pressure 131/79 H 10/31/20 13:59 Temperature 37.6 C 10/31/20 13:59 Heart Rate 83 10/31/20 13:59 Respiratory Rate 18 10/31/20 13:59 Blood Pressure 131/79 H 10/31/20 13:59 O2 Saturation - NST Procedure NST Procedure Start Date 10/31/20 Start Time 13:52 Stop Time 15:00 Vibroacoustic Stimulation Used Yes Patient States Movement Yes - Results and Plan Findings/Impression: Camelia is a 24yo @ 38.1 wks gestation who presents today to [facility] for scheduled NST secondary to gestational diabetes. NST performed 10/31/2020 NST read 10/31/2020 NST reactive. FHR baseline 145, moderate variability, 15x15 accels, no decels. Assessment: 24yo @ 38.1wks gestation A1 GDM Plan: Continue twice weekly NSTs with once weekly BPPs/AFIs and plan IOL at 39wks gestation. Pt verbalized understanding and agrees to above plan. She denies further questions or concerns at this time. FINAL DIAGNOSIS: A1 Gestational Diabetes
== END 2020-10-31 15:00 | disposition home or self-care (01) ==
LOC: WFO 13:42 → FBP 13:45 → WFO 15:00
PROVIDERS: ATTEND Advanced Practice Midwife
DX: O24.410 Gestational diabetes mellitus in pregnancy, diet controlled (principal); Z3A.38 38 weeks gestation of pregnancy
CPT/HCPCS: 59025

== ENCOUNTER 2020-11-03 13:29 | Outpatient (CLI) | payer BC, MEDICAID ==
--- NOTE | 2020-11-03 16:13 | Ultrasound Report ---
PROCEDURE: OB Biophysical Profile INDICATIONS: GESTATIONAL DIABETES MELLITUS OUTSIDE/PRIOR DATING DATA: Last menstrual period (LMP): 02/07/2020. LMP-based estimated date of delivery (JERRI): 11/13/2020. First dating scan (date and location): 04/17/2020. Estimated date of delivery (JERRI) from first dating scan: 11/20/2020 Provider states estimated date of delivery is 11/20/2020.. TECHNIQUE: Real-time scanning was performed of the fetus, with image documentation and biometric tony surements. Biophysical profile was also obtained. Endovaginal scanning: Not needed COMPARISON: All prior OB ultrasound studies for this . FINDINGS: General: A single living intrauterine gestation is present. Presentation: Vertex Placenta: Placental position is anterior, without previa. Amniotic fluid index: 15.5 cm, 63rd percentile for gestational age. heart rate: 149 beats per minute. Maternal cervical canal: Not well seen due to vertex presentation. biometrics: Estimated gestational age from initial scan: 37 weeks 4 days. Biophysical profile: Tone: 2 points. Movement: 2 points. Respiration: 2 points. Largest pocket of fluid: 2 points. Umbilical artery Doppler: 1.9, 2.4, 3.3 IMPRESSION: Normal amniotic fluid index, normal biophysical profile and umbilical artery systolic/diastolic ratio . Vertex presentation which precluded clear visualization of the maternal cervical canal. Reviewed by: Kulwinder Cintron MD on 11/03/2020 4:11 PM PDT Approved by: Kulwinder Cintron MD on 11/03/2020 4:11 PM PDT Station ID: [id number]
== END 2020-11-03 13:30 | disposition home or self-care (01) ==
LOC: DI 13:29
PROVIDERS: ATTEND Nurse Practitioner Obstetrics & Gynecology
DX: O24.419 Gestational diabetes mellitus in pregnancy, unspecified control (principal)

== ENCOUNTER 2020-11-03 14:07 | Outpatient (CLI) | payer BC, MEDICAID ==
[2020-11-03 14:19] VITALS: BP 123/74
--- NOTE | 2020-11-06 07:53 | PROCEDURE REPORT ---
- HPI Diagnosis/Indication for NST: Gestational Diabetes Current EDU 11/13/20 Gestation 38 Weeks and 4 Days 2 Para 1 Vital Signs Temperature 37.1 C 11/03/20 14:18 Heart Rate 89 11/03/20 14:18 Respiratory Rate 18 11/03/20 14:18 Blood Pressure 123/74 11/03/20 14:18 O2 Saturation 99 11/03/20 14:18 Temperature 37.1 C 11/03/20 14:18 Heart Rate 89 11/03/20 14:18 Respiratory Rate 18 11/03/20 14:18 Blood Pressure 123/74 11/03/20 14:18 O2 Saturation 99 11/03/20 14:18 - NST Procedure NST Procedure Start Date 11/03/20 Start Time 14:17 Stop Time 14:47 Vibroacoustic Stimulation Used Yes Patient States Movement Yes - Results and Plan Plan: Camelia is a 24yo @ 38.6 wks gestation who presents today to [facility] for s cheduled NST secondary to gestational diabetes. NST performed 11/03/2020 NST read 11/03/2020 NST reactive. FHR baseline 130, moderate variability, 15x15 accels, no decels. Assessment: 24yo @ 38.6wks gestation A2 GDM Plan: Continue twice weekly NSTs with once weekly BPPs/AFIs and plan IOL at 39wks gestation. Pt verbalized understanding and agrees to above plan. She denies further questions or concerns at this time. FINAL DIAGNOSIS: A2 Gestational Diabetes
== END 2020-11-03 14:55 | disposition home or self-care (01) ==
LOC: WFO 14:07 → FBP 14:08 → WFO 14:55
PROVIDERS: ATTEND Nurse Practitioner Obstetrics & Gynecology
DX: O24.419 Gestational diabetes mellitus in pregnancy, unspecified control (principal); Z3A.38 38 weeks gestation of pregnancy
CPT/HCPCS: 59025

== ENCOUNTER 2020-11-06 07:48 | Inpatient (IN) | payer BC, MEDICAID ==
[2020-11-06] MEDS: SODIUM CHLORIDE FLUSH 0.9% 10 ML SYRINGE IVP SCH ×2 (08:25→18:25)
[2020-11-06] MEDS ORDERED: ONDANSETRON 4 MG/2 ML VIAL IVP PRN (08:43)
[2020-11-06] MEDS ORDERED: TRANEXAMIC ACID IN NACL 1,000 MG/100 ML BAG IV PRN (08:43)
[2020-11-06] MEDS ORDERED: SODIUM CHLORIDE FLUSH 0.9% 10 ML SYRINGE IVP PRN (08:43)
[2020-11-06] MEDS ORDERED: LIDOCAINE-MPF 1% 30 ML VIAL ID PRN (08:43)
[2020-11-06] MEDS ORDERED: METHYLERGONOVINE 0.2 MG/ML VIAL IM PRN (08:43)
[2020-11-06] MEDS ORDERED: OXYTOCIN/SODIUM CHLORIDE 500 ML IV PRN (08:43)
[2020-11-06] MEDS ORDERED: miSOPROStoL 200 MCG TABLET BC PRN (08:43)
[2020-11-06] MEDS ORDERED: CARBOPROST TROMETHAMINE 250 MCG/ML AMP IM PRN (08:43)
[2020-11-06] MEDS ORDERED: OXYTOCIN 10 UNIT/ML VIAL IM PRN (08:43)
[2020-11-06] MEDS: miSOPROStoL 100 MCG TABLET BC SCH ×5 (09:04→19:49)
--- NOTE | 2020-11-06 09:13 | HISTORY & PHYSICAL EXAMINATION ---
Admit History - Visit Reason Visit Reason: Other - : 2 Parity: 1 Premature: 0 Ectopic: 0 : 0 Care: positive: [facility] Risk/History: positive: None Complications This : positive: Gestational diabetes Smoking Status: Never smoker - Mother's Labs Mother's Blood Type: positive: A Mother's RH: positive: Positive GBS: positive: Group B Strep Positive Rubella Status: positive: Immune Meds/Allgy - Allergies Allergies/Adverse Reactions: Allergies Allergy/AdvReac Type Severity Reaction Status Date / Time shellfish derived Allergy Unknown Verified 10/16/20 14:09 shrimp Allergy Unknown Verified 10/16/20 14:09 Review of Systems - Constitutional Constitutional: denies: Fever, Chills, Malaise - Eyes Eyes: denies: Blurred vision, Spots in vision, Dipolpia - Cardiovascular Cariovascular: denies: Irregular heart rate, Palpitations, Chest pain, Edema - Respiratory Respiratory: denies: SOB at rest - Gastrointestinal Gastrointestinal: denies: Constipation, Diarrhea, Change in bowel habits, Nausea, Vomiting - Integumentary Integumentary: denies: Rash, Pruritis - Neurological Neurological: denies: Headache Physical - Abdominal Exam Contraction Intensity: positive: Mild Uterine Resting Tone: positive: Soft - Monitoring Heart Rate Baseline: 145 Strip Review: positive: Category I - Presentation Presentation: positive: Vertex - Vaginal Exam Membranes: positive: Membranes intact Dilation (in cm): 1 Effacement (%): 70 Station: positive: -3 Cervical Position: positive: Posterior - Speculum Exam Speculum Exam Performed: positive: No Plan for Labor - Plan For Labor I expect patient to be DC'd or transferred within 96 hours.: Yes Plan for Labor: Camelia is a 25yo @ 39.0wks gestation by 10.3wk U/S c/w LMP dating who presents today for scheduled induction of labor secondary to A2 gestational diabetes which was diagnosed late in her . She denies vaginal bleeding, leakage of fluid, or contractions. She reports +FM. Upon arrival her cervix is noted to be 1/70/-3, posterior, medium consistency and vertex. No consistent contractions appreciated via tocometry. FHR Category I. She has been a patient of [facility] through the duration of her which is complicated by late diagnosis gestational diabetes. Her 1 hour GTT was 137. She was measuring larger than expected at her 33wk routine office visit and a growth ultrasound was ordered which indicated EFW 99%tile and shortened femur length consistent with gestational diabetes. A 3 hr GTT was then completed which diagnosed gestational diabetes. She has undergone twice weekly NSTs and once weekly BPPs since her diagnosis and have all been WNL. She had difficulty controlling her blood glucose with her diet and once daily 500mg Metformin was initiated @ 36wks and then increased to 500mg twice daily at 37wks which improved her blood glucose values. Dating criteria: LMP 02/07/2020 Initial ultrasound @ 10.3wks c/w LMP dating Serial Exams - large for gestational age Medications: PNV, 500mg Metformin bid, Pepcid Allergies: Shellfish (Critical) OB Hx: G1: 09/25/2018, @ 40.5wks, epidural, Female, [id number] G2: current. Complicated by A1GDM PMHx: no significant Surgical Hx: None. Social Hx: Never smoker. No ETOH or IVDA. Family Hx: Diabetes - MGM; Cervical cancer - MGM, Aunt; Arthritis - PGM course: PROBLEMS: A2 Gestational diabetes (late diagnosis) Initial U/S: 04/17/2020 @ 10.3wks c/w LMP dating for final JERRI 11/13/2020 A pos/Rubella immune VZV: immune Genetic testing: denies and declines FAS: posterior placenta. ALE 60%. EFW 77%. 3VC. Growth 08/07/2020: ALE 16.0 (wnl); efw 1044g 87% Glucola 137 3hr ordered following abnormal growth ultrasound diagnoses GDM (193, 163, 134, 108). Twice weekly NSTs and once weekly BPPs initiated. Influenza: 04/03/2020 TDAP 08/30/2020 GBS & GC/CT 10/16 positive HSV: denies in self and partner Breast pump Rx provided MOD: Anticipate ; partner Moises; Daughter 2019- Macee . epidural. BOY: Bright 39wk IOL (11/06/2020) at 0800 pp contraception: considering, had COCs and didn't like them, very porter. Discussed IUDs pap: 2019 WNL Physical Exam: Normocephalic, atraumatic Heart RRR w/o M/G/R Lungs CTAB Abdomen gravid, soft, nontender FHR baseline 140, moderate variability, + accels, no decels Contractions intermittent, inconsistent, non painful SVE 70/-3, posterior, medium consistency. Vertex. Bilateral LE's no edema Mood is good. Assessment: 25yo @ 39.0wks gestation by LMP c/w 10.3wks gestation Initial 50mcg BC misoprostol q 4 hours for cervical ripening Continuous monitoring Jacuzzi PRN. Nitrous oxide PRN. Epidural per maternal request. Anticipate . Reviewed plan of care with pt, partner, and labor RN at the bedside who all verbalize understanding and agree to above plan. They deny further questions or concerns at this time.
[2020-11-06 09:18] LABS: BASOPHILS % (AUTO) 0.1 %; EOSINOPHILS # (AUTO) 0.1 10^3/uL (0.0-0.7); EOSINOPHILS % (AUTO) 0.7 %; HCT - HEMATOCRIT 32.3 % (37.0-47.0); HGB - HEMOGLOBIN 9.8 g/dL (12.0-16.0); LYMPHOCYTES # (AUTO) 2.2 10^3/uL (1.5-3.5); LYMPHOCYTES % (AUTO) 21.7 %; MEAN CORPUSCULAR HEMOGLOBIN 24.2 pg (27.0-31.0); MEAN CORPUSCULAR HGB CONC 30.3 g/dL (32.0-36.0); MEAN CORPUSCULAR VOLUME 79.8 fL (81.0-99.0); MEAN PLATELET VOLUME 10.2 fL (7.9-10.8); MONOCYTES # (AUTO) 0.9 10^3/uL (0.0-1.0); MONOCYTES % (AUTO) 8.5 %; NEUTROPHILS # (AUTO) 6.8 10^3/uL (1.5-6.6); NEUTROPHILS % (AUTO) 67.8 %; NRBC ABSOLUTE COUNT (AUTO) 0.02 x10^3/uL; NUCLEATED RED BLOOD CELLS AUTO 0.2 /100WBC; PLT - PLATELET COUNT 233 10^3/uL (130-450); RED BLOOD COUNT 4.05 10^6/uL (4.20-5.40); RED CELL DISTRIBUTION WIDTH 15.9 % (12.0-15.0)
--- NOTE | 2020-11-06 14:14 | ANESTHESIA ---
Pre-Anesthesia VS, & Labs - Diagnosis request for labor analgesia - Procedure labor epidural Vital Signs: Temp Pulse Resp BP Pulse Ox 37.1 C 63 18 133/76 H 100 11/06/20 11:50 11/06/20 11:50 11/06/20 11:50 11/06/20 11:50 11/06/20 11:50 Height: 5 ft 8 in Weight (kg): 90.265 kg Body Mass Index: 30.2 BMI Classification: Obese - NPO >8 hours - Is Patient ?: Yes - Lab Results Current Lab Results: Laboratory Tests 11/06/20 08:25: WBC 10.0, RBC 4.05 L, Hgb 9.8 L, Hct 32.3 L, MCV 79.8 L, MCH 24.2 L, MCHC 30.3 L, RDW 15.9 H, Plt Count 233, MPV 10.2, Neut # (Auto) 6.8 H, Lymph # (Auto) 2.2, Sumner # (Auto) 0.9, Eos # (Auto) 0.1, Baso # (Auto) 0.0, Absolute Nucleated RBC 0.02, Nucleated RBC % 0.2 11/06/20 08:25: Blood Type A POSITIVE, Antibody Screen NEGATIVE Lab results reviewed: Yes Fish Bones: 11/06/20 08:25 Home Medications and Allergies Active Medications Carboprost Tromethamine (Carboprost Tromethamine 250 Mcg/Ml Amp) 250 mcg IM Q15M PRN PRN Reason: Step 4: Hemorrhage protocol Stop: 11/11/20 08:44 Oxytocin/Sodium Chloride (Pitocin/Sodium Chloride) 500 mls @ 999 mls/hr IV PRN PRN; Protocol PRN Reason: POST- HEMORR PREVENTION Stop: 11/11/20 08:44 Tranexamic Acid (Tranexamic 1,000 Mg/100ml-Nacl) 1,000 mg in 100 mls @ 600 mls/hr IV .ONCE PRN PRN Reason: EBL >1200mL and within 3hr Stop: 11/11/20 08:44 Lactated Ringer's (Lr) 1,000 mls @ 100 mls/hr IV .Q10H MAGEN Lidocaine HCl (Lidocaine-Mpf 1% 30 Ml Vial) 30 ml ID .ONCE PRN PRN Reason: PERINEAL REPAIR Stop: 11/11/20 08:44 Metformin HCl (Metformin 500 Mg Tablet) 500 mg PO BIDWM [facility] Methylergonovine Maleate (Methylergonovine 0.2 Mg/Ml Vial) 0.2 mg IM .ONCE PRN PRN Reason: Step 2: Hemorrhage protocol Stop: 11/11/20 08:44 Misoprostol (Misoprostol 200 Mcg Tablet) 800 mcg BC .ONCE PRN PRN Reason: Step 3: Hemorrhage protocol Stop: 11/11/20 08:44 Misoprostol (Misoprostol 100 Mcg Tablet) 50 mcg BC Q4HR [facility] Last Admin: 11/06/20 13:31 Dose: Not Given Documented by: Ondansetron HCl (Ondansetron 4 Mg/2 Ml Vial) 4 mg IVP Q4HR PRN PRN Reason: Nausea / Vomiting Oxytocin (Oxytocin 10 Unit/Ml Vial) 10 unit IM .ONCE PRN PRN Reason: Step one: If no IV access Stop: 11/11/20 08:44 Sodium Chloride (Sodium Chloride Flush 0.9% 10 Ml Syringe) 10 ml IVP 0100,0 900,1700 [facility] Sodium Chloride (Sodium Chloride Flush 0.9% 10 Ml Syringe) 10 ml IVP PRN PRN PRN Reason: NEEDED PER PROVIDER ORDERS Allergies/Adverse Reactions: Allergies Allergy/AdvReac Type Severity Reaction Status Date / Time shellfish derived Allergy Unknown Verified 10/16/20 14:09 shrimp Allergy Unknown Verified 10/16/20 14:09 Anes History & Medical History - Anesthetic History Anesthesia Complications: reports: No previous complications Family history of Anesthesia Complications: Denies Family history of Malignant Hyperthermia: Denies - Medical History Cardiovascular: reports: None Pulmonary: reports: None Gastrointestinal: reports: None Urinary: reports: None Neuro: reports: None Musculoskeletal: reports: None Endocrine/Autoimmune: reports: None Blood Disorders: reports: None Skin: reports: None Smoking Status: Never smoker Psychosocial: reports: No issues indicated History of Cancer?: No - Obstetrical History : 2 Parity: 1 Events: reports: None Complications: reports: Gestational diabetes Exam General: Alert, Oriented x3, Cooperative, No acute distress Plan Anesthesia Type: Epidural Consent for Procedure(s) Verified and Reviewed: Yes Code Status: Attempt Resuscitation ASA classification: 2-Mild systemic disease Is this case an emergency?: No
[2020-11-06] MEDS: FAMOTIDINE 20 MG TABLET PO SCH (16:45)
[2020-11-06] MEDS: metFORMIN 500 MG TABLET PO SCH (16:52)
[2020-11-06] MEDS: LACTATED RINGERS 1,000 ML IV SCH (18:24)
[2020-11-06] MEDS ORDERED: ZOLPIDEM 5 MG TABLET PO PRN (19:44)
[2020-11-07] MEDS: miSOPROStoL 100 MCG TABLET BC SCH (00:18)
[2020-11-07] MEDS ORDERED: AMPICILLIN 2 GM in SODIUM CHLORIDE 0.9% MINIBAG 100 ML IV STA (03:37)
[2020-11-07] MEDS: LACTATED RINGERS 1,000 ML IV SCH ×2 (03:46→11:32)
[2020-11-07] MEDS ORDERED: ROPIVACAINE 0.2% 200 MG/100 ML BAG EP ONE (03:51)
[2020-11-07] MEDS ORDERED: LIDOCAINE-MPF 1% 30 ML VIAL ONE (04:17)
[2020-11-07] MEDS ORDERED: ROPIVACAINE 0.2% 200 MG/100 ML BAG EP PRN (04:45)
[2020-11-07] MEDS ORDERED: NALOXONE 0.4 MG/ML VIAL IVP PRN (04:45)
[2020-11-07] MEDS ORDERED: NALBUPHINE 10 MG/ML AMP IVP PRN (04:45)
[2020-11-07] MEDS ORDERED: ONDANSETRON 4 MG/2 ML VIAL IVP PRN (04:45)
[2020-11-07] MEDS ORDERED: ePHEDrine 50 MG/ML VIAL IVP PRN (04:45)
[2020-11-07] MEDS ORDERED: diphenhydrAMINE INJ 50 MG/ML VIAL IVP PRN (04:45)
[2020-11-07] MEDS ORDERED: METOCLOPRAMIDE 10 MG/2 ML VIAL IVP PRN (04:45)
[2020-11-07] MEDS ORDERED: HYDROCORTISONE 1% CREAM 28 GM TUBE PR PRN (05:54)
[2020-11-07] MEDS ORDERED: WITCH HAZEL/GLYCERIN 1 PAD TOP PRN (05:54)
--- NOTE | 2020-11-07 05:54 | DELIVERY NOTE ---
Delivery Note - Labor Labor: positive: Other - Infant Delivery Method Delivery Method: positive: Spontaneous vaginal delivery - Cervical Ripening Method Cervical Ripening Method: positive: Misoprostil - Presentation Presentation: positive: Vertex, JILLIAN - left occiput anterior - Nuchal Cord Nuchal Cord: positive: None - Amniotic Fluid Description Amniotic Fluid Description: positive: Clear - Episiotomy Type Episiotomy Type: positive: None - Laceration Laceration: positive: 2nd degree, Perineal, Vaginal - Suture Suture Type: positive: Vicryl Suture Size: positive: 2-0 - Delivery Outcome Delivery Outcome: positive: Livebirth - [place]: positive: Placed in direct skin contact with mother, Bulb syringe, Stimulated, Warmed, [place] used [place] sex: positive: Male - Cord Cord: positive: 3 vessels - Placenta Placenta: positive: Intact, Spontaneous - Estimated Blood Loss Estimated Blood Loss (in cc): 200 - Post Delivery Events Post Delivery Events: positive: No post delivery events - Delivery Comments (Free Text/Narrative) Delivery Comments (Free Text/Narrative): Labor: This 25yo @ 39.1wks gestation by LMP c/w 10.3wks U/S presented on 11/06/2020 for medical induction of labor secondary to A2 gestational diabetes. Cervix was 1/70/-3 and Vertex. FHR pattern demonstrated Category I pattern. She received 4 total doses of 50mcg BC misoprostol for effective pre-induction cervical ripening. She began to experiencing increased intensity of contractions at 0330. SVE was 5/80/-2 and pt requested epidural for pain management. 2g Ampicillin was initiated for GBS prophylaxis and pt received 1 dose and therefore was not adequately treated for GBS secondary to precipitous labor course. While sitting up for epidural pt contractions became significantly more uncomfortable and SROM occurred at 0400 and was noted to a be a moderate amount of clear fluid. Pt progressed to c/c/+1 with onset of pushing at 0450. : Normal of viable male infant on 11/07/2020 @ 0511. No nuchal cord. The was placed on maternal abdomen, stimulated, dried, and placed skin to skin. 's were 7/9 at 1 and 5 min respectively. Pitocin administered via IV for hemostasis. The umbilical cord was allowed to stop pulsating at which time it was doubly clamped by CNM and cut by FOB. 3VC. Cord blood was obtained. Fundal massage and gentle cord traction applied for active management of the third stage. Placenta delivered spontaneously and intact at 0518. EBL 200mL. Fourth stage: Uterine fundus firm and there is no excessive bleeding. The perineum, vagina, and cervix were inspected and found to be intact. Vaginal examination following repair was done. Tissues well approximated. initiated. Family bonding well. Both mother and baby were left in stable condition.
[2020-11-07] MEDS: IBUPROFEN 800 MG TABLET PO SCH ×3 (06:32→19:48)
[2020-11-07] MEDS ORDERED: AMPICILLIN 1 GM in SODIUM CHLORIDE 0.9% MINIBAG 100 ML IV SCH (08:00)
[2020-11-07] MEDS: FAMOTIDINE 20 MG TABLET PO SCH (08:13)
[2020-11-07] MEDS: metFORMIN 500 MG TABLET PO SCH (08:14)
[2020-11-07] MEDS: DOCUSATE SODIUM 100 MG CAPSULE PO SCH ×2 (08:14→20:33)
[2020-11-07] MEDS: ACETAMINOPHEN 500 MG TABLET PO SCH ×2 (08:15→16:03)
[2020-11-07] MEDS: SODIUM CHLORIDE FLUSH 0.9% 10 ML SYRINGE IVP SCH (10:56)
[2020-11-08] MEDS: ACETAMINOPHEN 500 MG TABLET PO SCH ×3 (01:44→19:46)
[2020-11-08] MEDS: IBUPROFEN 800 MG TABLET PO SCH ×4 (01:44→23:11)
[2020-11-08] MEDS: DOCUSATE SODIUM 100 MG CAPSULE PO SCH ×2 (08:17→23:11)
--- NOTE | 2020-11-08 10:31 | PROVIDER PROGRESS NOTE ---
Subjective - Subjective Subjective: S: Bonding well with baby. without difficulty. Bleeding decreased and is light. Pain well controlled with oral medications. Urinating without difficulty. Partner supportive at the bedside. O: BP 110/64, T 36.8, HR 78 Heart RRR w/o M/G/R, lungs CTAB, abdomen soft and nontender with fundus firm at U, perineum intact, light lochia rubra, bilateral LE's trace edema. A: 25yo -->P2 PPD#1 s/p TSVD viable male A2GDM P: Continue routine pp care and medications. Evaluate for discharge home tomorrow. Pt verbalized understanding and denies questions or concerns at this time. Objective - Vital Signs/Intake & Output Vital Signs: Vital Signs x48h Temp Pulse Resp BP Pulse Ox 11/08/20 09:17 36.8 C 78 16 110/64 100 11/08/20 04:15 37.1 C 82 16 99/56 L 100 Intake & Output: Intake & Output 11/05/20 11/06/20 11/07/20 11/08/20 23:59 23:59 23:59 23:59 Intake Total 1950 Output Total 625 Balance 1325 - Lab Results Fish Bones: 11/06/20 08:25
[2020-11-09] MEDS: ACETAMINOPHEN 500 MG TABLET PO SCH ×2 (03:39→11:06)
[2020-11-09] MEDS: IBUPROFEN 800 MG TABLET PO SCH ×2 (05:28→11:06)
--- NOTE | 2020-11-09 06:57 | PROVIDER PROGRESS NOTE ---
Subjective - Subjective Subjective: FINAL PROGRESS NOTE: S: Bonding well with baby. without difficulty. Bleeding decreased and is light. Pain well controlled with oral medications. Urinating without difficulty. They are excited to get to go home today. She is feeling well overall. Her is supportive at the bedside. O: BP 100/54, T 36.4 Heart RRR w/o M/G/R, lungs CTAB, abdomen soft and nontender with fundus firm at U-2, perineum intact, light lochia rubra, bilateral LE's no edema. A: 25yo -->P2 PPD#2 s/p TSVD viable male infant A2GDM - will order 2 hour GTT at 6wk pp visit Normal recovery P: REviewed pp self care and warning s/sx and when to present. Encouraged continuation of vitamin while . Recommended continuation of ibuprofen and tylenol OTC PRN pain. F/u in 1 week at [facility] or sooner PRN. Pt verbalized understanding and agrees to above plan. She denies further questions or concerns at this time. Objective - Vital Signs/Intake & Output Vital Signs: Vital Signs x48h Temp Pulse Resp BP Pulse Ox 11/09/20 03:45 36.4 C L 83 16 100/54 L 98 Intake & Output: Intake & Output 11/06/20 11/07/20 11/08/20 11/09/20 23:59 23:59 23:59 23:59 Intake Total 1950 Output Total 625 Balance 1325 - Lab Results Fish Bones: 11/06/20 08:25
--- NOTE | 2020-11-09 06:58 | Discharge Plan ---
Discharge Plan Problem Reviewed?: Yes Disposition: Home, Self Care Condition: Good Diet: Regular Activity Restrictions: No Restrictions Shower Restrictions: No Driving Restrictions: No Weight Bearing: Full Weight No Smoking: If you smoke, Please STOP! Call for help. Follow-up with: Kristie Henderson CNM, ARNP [Provider Admit Priv/Credential] -
--- NOTE | 2020-11-09 07:07 | DISCHARGE SUMMARY ---
Discharge Summary Admit Date: 11/06/20 Discharge Date: 11/09/20 Discharging Provider: Kristie Henderson CNM/DILCIA Condition at Discharge: Good Discharge Disposition: 01 Home, Self Care - ALLERGIES Allergies/Adverse Reactions: Allergies Allergy/AdvReac Type Severity Reaction Status Date / Time shellfish derived Allergy Unknown Verified 11/06/20 14:16 shrimp Allergy Unknown Verified 11/06/20 14:16 - MEDICATIONS Home Medications: Ambulatory Orders Medication Instructions Recorded Confirmed metFORMIN [Glucophage] 500 mg PO BIDWM 11/06/20 11/06/20 - LABS Result Diagrams: 11/06/20 08:25 - FOLLOW UP Follow Up: Diagnosis on admission: 1. A 25yo @ 39.0wks gestationby LMP c/w first trimester U/S 2. A2 Gestational Diabetes 3. GBS positive Diagnosis on Discharge: 1. A 25yo s/p on 11/07/2020 2. Normal recovery Brief history: She is a patient of [facility] who presented ton 11/06/2020 for medical induction of labor secondary to A2 gestational diabetes. Cervix was 1/70/-3 and vertex. She was given 4 doses of 50mcg BC misoprostol for effective pre-induction cervical ripening. She received 1 loading dose of 2g Ampicillin ho wever her labor progressed precipitously following this and she was not given any additional doses of Ampicillin and therefore, was inadequately treated for GBS. She progressed precipitously to deliver a viable male infant on 11/07/2020 @ 0511. 's were 7/9 at 1 and 5 min respectively. EBL 200mL. The perineum, vagina, and cervix were inspected and found to have 2nd degree perineal laceration which was repaired using a 2-[address]-1 needle in standard fashion and under sterile conditions. She has been doing well in her course. She is ambulating and tolerating a regular diet. She is urinating without difficulty and her lochia is normal. Her pain is well controlled with oral medications. She will be discharged home today on pPD#1 with instructions to continue taking her vitamin while and to continue taking ibuprofen and tylenol OTC as needed for pain management. She intends to f/u with myself at [facility] in 1 week for routine pp visit or sooner PRN. She has been given precautions to call if she has any worsening fevers, chills, abdominal pain, increased bleeding or foul smelling vaginal lochia.
[2020-11-09] MEDS: DOCUSATE SODIUM 100 MG CAPSULE PO SCH (08:13)
[2020-11-09 08:38] VITALS: BP 124/75
--- NOTE | 2020-11-09 12:52 | Labor Flowsheet ---
Labor Flowsheet Datetime Report Generated by CPN: 11/09/2020 12:51 Datetime: 11/09/2020 08:11 VITAL SIGNS NBP Sys/[place]/Mean (mmHg): 124 : 75 : 87 Pulse: 83 LaborFlag: Labor Datetime: 11/09/2020 03:40 SpO2 (%): 99 Datetime: 11/07/2020 05:11 STAGE 2 Pushing: Coached on Pushing; Urge to Push Pushing Position: Pushing with Contractions; Pushing Right Side Datetime: 11/07/2020 05:10 Pushing Progress: Descent with Pushing Datetime: 11/07/2020 04:49 COMMUNICATION Communication: Provider at Bedside Communication Comments: Kristie Santiago, CNM Datetime: 11/07/2020 04:43 Patient Position/Activity: Left Tilt Datetime: 11/07/2020 04:39 Provider Notified (Name): Santiago Datetime: 11/07/2020 04:36 VAGINAL EXAM Dilatation (cm): 9.5 Effacement (%): 100 Station: 0 Exam by: Elizabeth Anguiano, RN Datetime: 11/07/2020 04:30 UTERINE ACTIVITY Monitor Mode: External Frequency (min): 1-2 Quality: Strong Duration (sec): 50-60 Pattern: Normal: <= 5 Contractions in 10 Minutes Resting Tone (Palpate): Relaxed Contraction Comments: epidural placement ASSESSMENT A Monitor Mode: Telemetry FHR Baseline Rate : 150 Variability: Moderate 6-25 bpm Decelerations: Variable Category: Category II Datetime: 11/07/2020 04:24 Epidural Procedure: Cath Placed Datetime: 11/07/2020 03:57 PROCEDURE TIME OUT Procedure Verify: Correct Patient Identity; Correct Side and Site are Marked; Accurate Procedure Co nsent Form; Agreement on Procedure to be Done; Correct Patient Position ANESTHESIA Epidural Positioning: Sitting Anesthesia Comments: Anethesia at bedside Datetime: 11/07/2020 03:46 Antibiotics: Ampicillin IV 2 Gm Datetime: 11/07/2020 03:37 Pain Coping: Requesting Pain Medication or Epidural Datetime: 11/07/2020 03:34 Monitor Interventions for FHR: Ultrasound Adjusted Comments: maternal HR Datetime: 11/07/2020 03:32 I/O Interventions: Up to BR Datetime: 11/07/2020 02:29 Comfort Measures: Hot Shower/Tub/Spa Datetime: 11/07/2020 02:11 PAIN Pain Scale: 9 Pain Presence: Intermittent Pain Type: Cramping; Contraction Pain Location: Abdomen Pain Assessment Comments: standing at bedside through contractions Datetime: 11/07/2020 01:00 Accelerations: 10X10 Datetime: 11/07/2020 00:21 Temperature (C): 36.7 Datetime: 11/07/2020 00:20 Cervical Ripening Agents: Cytotec @ Datetime: 11/06/2020 23:00 Monitor Interventions for UA: [place] Adjusted Datetime: 11/06/2020 21:02 MEDICATIONS Analgesics/Sedatives: Ambien (mg) @ 5mg Datetime: 11/06/2020 19:17 MATERNAL ASSESSMENT Level of Consciousness: Alert DTR's/Clonus: DTRs 2+ Headache: Denies Breath Sounds, Left: Clear and Equal Breath Sounds, Right: Clear and Equal Nausea/Vomiting: Denies RUQ Epigastric Pain: Denies Datetime: 11/06/2020 19:00 PATIENT CARE Oxygen Method: Room Air Datetime: 11/06/2020 18:56 Patient Care Comments: Jacuzzi jets off Datetime: 11/06/2020 18:00 Bedside Blood Glucose: 99 Datetime: 11/06/2020 17:59 Respirations: 17
== END 2020-11-09 12:00 | disposition home or self-care (01) | DRG 807 ==
LOC: WFO 07:48 → FBP 07:51 → WFO 08:42 → FBP 08:43
PROVIDERS: ADMIT Nurse Practitioner Obstetrics & Gynecology; ATTEND Nurse Practitioner Obstetrics & Gynecology
PROC: 10E0XZZ Delivery of Products of Conception, External Approach (ICD-10-PCS; principal; 2020-11-07)
PROC: 0KQM0ZZ Repair Perineum Muscle, Open Approach (ICD-10-PCS; 2020-11-07)
DX: O24.425 Gestational diabetes mellitus in childbirth, controlled by oral hypoglycemic drugs (principal); Z37.0 Single live birth; O99.824 Streptococcus B carrier state complicating childbirth; O62.3 Precipitate labor; Z3A.39 39 weeks gestation of pregnancy; O70.1 Second degree perineal laceration during delivery
CPT/HCPCS: 36415; 85025; 86850; 86900; 86901; A9270; J7120

== ENCOUNTER 2022-05-08 15:44 | Outpatient (CLI) | payer OTHER, MEDICAID ==
--- NOTE | 2022-05-09 09:34 | Ultrasound Report ---
PROCEDURE: OB Detailed Eval INDICATIONS: SUPERVISION OF OUTSIDE/PRIOR DATING DATA: Last menstrual period (LMP): 12/21/2021. LMP-based estimated date of delivery (JERRI): 09/27/2022. First dating scan (date and location): 02/26/2022. Estimated date of delivery (JERRI) from first dating scan: 10/02/2022. The below data below was generated using the ultrasound JERRI of 10/02/2022 TECHNIQUE: Real-time scanning was performed of the fetus, with image documentation and biometric measurements. Endovaginal scanning: Not performed COMPARISON: None available FINDINGS: General: A single living intrauterine gestation is present. Presentation: Vertex Placenta: Placental position is posterior, without previa. Amniotic fluid index: 12.3 cm, deepest pocket 3.4 cm, normal for gestational age. heart rate: 152 beats per minute. Maternal cervical canal: Closed and 4.9 cm long; normal length is 2.5 cm or more. biometrics: Biparietal diameter: 4.5 cm, 19 weeks, 4 days Head circumference: 16.8 cm, 19 weeks, 3 days Abdominal circumference: 15.9 cm, 21 weeks, 0 days Femur length: 3.1 cm, 18 weeks, 6 days Estimated gestational age from initial scan: 19 weeks, 0 days. Composite gestational age from present scan: 19 weeks, 5 days Estimated weight and percentile: 344 g, 98th percentile Measurement variability in biometric dating: +/- 10 days from 12-20 weeks gestation, +/- 2 weeks from 20-30 weeks gestation, +/- 3 weeks at 30 weeks gestation or later. Anatomic survey: Neuro: Ventricles are normal at less than 10 mm. Cisterna magna is normal at 3-11 mm. Cerebellum i s normal in size and morphology. Nuchal skin fold: Normal at less than 6 mm between 14 and 20 weeks gestational age. Face: Nose and lips, facial profile are normal. Spine: No evidence for spina bifida. Heart: Cardiac ventricular outflow tracts were well seen and appear normal. 4 chambered view was not well seen. Diaphragm: Diaphragm is intact. Stomach: Left-sided stomach is present. Kidneys: No hydronephrosis. Normal is less than 5 mm in 2nd trimester, less than 7 mm in 3rd trimester. Cord: 3 vessel cord has orthotopic insertion. Bladder: Normal in size. Extremities: All 4 extremities are visualized. IMPRESSION: 1. Single living intrauterine with appropriate growth. 2. Estimated weight by today's measurements at the 98th percentile. 3. Suboptimal 4 chambered view of the heart. All other anatomic structures appear normal. Follo w-up recommended. 4. Closed maternal cervix and normal amniotic fluid volume. Reviewed by: Pascale Perez MD on 05/09/2022 9:33 AM PDT Approved by: Pascale Perez MD on 05/09/2022 9:33 AM PDT Station ID: [id number]
== END 2022-05-08 15:45 | disposition home or self-care (01) ==
LOC: DI 15:44
PROVIDERS: ATTEND Nurse Practitioner Obstetrics & Gynecology
DX: Z34.02 Encounter for supervision of normal first pregnancy, second trimester (principal); Z36.89 Encounter for other specified antenatal screening

== ENCOUNTER 2022-05-16 20:11 | Outpatient (CLI) | payer OTHER, MEDICAID ==
--- NOTE | 2022-05-17 18:17 | Ultrasound Report ---
PROCEDURE: OB F/U or Repeat INDICATIONS: SUPERVISION OF OUTSIDE/PRIOR DATING DATA: Last menstrual period (LMP): 12/21/2021. LMP-based estimated date of delivery (JERRI): 09/27/2022. First dating scan (date and location): 02/26/2022. Estimated date of delivery (JERRI) from first dating scan: 10/02/2022. The below data below was generated using the ultrasound JERRI of 10/02/2022 TECHNIQUE: Real-time scanning was performed of the fetus, with image documentation COMPARISON: 05/08/2022 FINDINGS: General: A single living intrauterine gestation is present. Presentation: Breech Placenta: Placental position is posterior, without previa. Amniotic fluid index: 13.9 cm, largest pocket is 5.1 cm, normal for gestational age. heart rate: 164 beats per minute. Maternal cervical canal: Closed Biometrics not obtained on today's study. Other: Normal 4 chambered heart is well seen. IMPRESSION: 1. Completion of anatomic survey with visualization of the normal 4 chamber heart. 2. Closed cervix and normal amniotic fluid volume Reviewed by: Pascale Perez MD on 05/17/2022 6:16 PM PST Approved by: Pascale Perez MD on 05/17/2022 6:16 PM PST Station ID: [id number]
== END 2022-05-16 20:12 | disposition home or self-care (01) ==
LOC: DI 20:11
PROVIDERS: ATTEND Nurse Practitioner Obstetrics & Gynecology
DX: Z34.00 Encounter for supervision of normal first pregnancy, unspecified trimester (principal); Z36.89 Encounter for other specified antenatal screening

== ENCOUNTER 2022-06-25 07:56 | Outpatient (CLI) | payer OTHER, MEDICAID ==
[2022-06-25 08:41] LABS: GTT GLUCOSE,FASTING 99 mg/dL (70-100)
[2022-06-25 10:13] LABS: HCT - HEMATOCRIT 38.1 % (37.0-47.0); HGB - HEMOGLOBIN 12.4 g/dL (12.0-16.0); MEAN CORPUSCULAR HEMOGLOBIN 29.5 pg (27.0-31.0); MEAN CORPUSCULAR HGB CONC 32.5 g/dL (32.0-36.0); MEAN CORPUSCULAR VOLUME 90.7 fL (81.0-99.0); MEAN PLATELET VOLUME 8.9 fL (7.9-10.8); RED BLOOD COUNT 4.2 10^6/uL (4.20-5.40); RED CELL DISTRIBUTION WIDTH 13.7 % (12.0-15.0); WHITE BLOOD COUNT 11.5 x10^3/uL (4.8-10.8)
[2022-06-26 04:09] LABS: HIV SCREEN 4TH GENERATION Non Reactive (Non Reactive)
== END 2022-06-25 07:57 | disposition home or self-care (01) ==
LOC: LAB 07:56
PROVIDERS: ATTEND Nurse Practitioner Obstetrics & Gynecology
DX: Z36.9 Encounter for antenatal screening, unspecified (principal)
CPT/HCPCS: 36415; 82951; 82952; 85027; 87389